=== PATIENT | female | born 1970 | race Two or more races ===

== ENCOUNTER 2020-06-10 18:24 | Emergency (ER) | payer MEDICARE, MEDICAID ==
[~2020-06-10] VITALS: Ht 162.6 cm; Wt 56.8 kg
[2020-06-10 18:37] VITALS: BP 123/81
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
[2020-06-10] MEDS ORDERED: L.E.T SOLUTION TP ONE ×2 (18:50→19:00)
--- NOTE | 2020-06-10 19:14 | NUR ---
PT BY HALLWAY DOOR. THIS RN SITTING AT NURSES STATION. PT NOTED TO SLAM THE DOOR AND LEAVE OPENING HALLWAYS DOOR AND POWER WALKING AWAY. THIS RN ATTEMPTED TO TALK TO PT W/O SUCCESS. PT LEFT. NO PERSONAL BELONGINGS IN ROOM. ROOM NOTED TO BE RANSACKED. PT LEFT W/ PERSONAL BELONGINGS BAG. ASSESSED ROOM AND NOTICED ALL SHEETS, TOWELS, AND BIN MISSING. SERGEI REED CHIEF MAINTENANCE SUPERVISOR NOTIFIED.
--- NOTE | 2020-06-10 19:25 | NUR ---
SECURITY NOTIFIED OF PT.
== END 2020-06-10 19:26 | disposition left against medical advice (07) ==
LOC: ED 19:20
DX: S01.01XA Laceration without foreign body of scalp, initial encounter (principal); S09.90XA Unspecified injury of head, initial encounter; F17.210 Nicotine dependence, cigarettes, uncomplicated; W22.8XXA Striking against or struck by other objects, initial encounter; Y93.89 Activity, other specified; Y92.410 Unspecified street and highway as the place of occurrence of the external cause; Y99.8 Other external cause status
CPT/HCPCS: 99283